=== PATIENT | male | born 1995 | race Caucasian/White ===

== ENCOUNTER 2018-01-19 19:30 | Emergency (ER) | payer BC ==
[2018-01-19 20:10] VITALS: BP 140/66
--- NOTE | 2018-01-19 21:22 | UC ---
Hand/Wrist HPI - HPI Summary HPI Summary: Patient injured his left thumb 6 days ago during football practice when it was hyperextended. He states that it was diagnosed as a sprain and wrapped. Today the thumb was accidentally bent backwards and the pain is "10 times worse than before. He states that it almost made him pass out and sick to his stomach when it occurred. He states the review trainer wrapped his thumb but told him to come here because they're concerned it may be a severe sprain or even a broken thumb. He denies any other injuries and offers no other complaints. - History Of Current Complaint Chief Complaint: UCUpperExtremity Stated Complaint: LEFT THUMB INJ Time Seen by Provider: 01/19/18 21:16 Hx Obtained From: Patient Pain Intensity: 5 Aggravating Factor(s): Movement Associated Signs And Symptoms: Positive: Swelling - Allergies/Home Medications Allergies/Adverse Reactions: Allergies Allergy/AdvReac Type Severity Reaction Status Date / Time No Known Allergies Allergy Verified 01/19/18 20:02 Home Medications: Home Medications NK [No Home Medications Reported] 01/19/18 [History Confirmed 01/19/18] PMH/Surg Hx/FS Hx/Imm Hx - Additional Past Medical History Additional PMH: Type I Chiari malformation, acl tear - Surgical History Surgical History: Yes Surgery Procedure, Year, and Place: rob cyst. LEFT ACL - Family History Known Family History: Positive: Cardiac Disease - Social History Occupation: Student Lives: Dormitory/Roommates Alcohol Use: Rare Substance Use Type: None Smoking Status (MU): Never Smoked Tobacco - Immunization History Most Recent Tetanus Shot: UTD Vaccination Up to Date: Yes Review of Systems Constitutional: Negative Skin: Negative Eyes: Negative ENT: Negative Respiratory: Negative Cardiovascular: Negative Gastrointestinal: Negative Genitourinary: Negative Motor: Negative Neurovascular: Negative Musculoskeletal: Other: - L thumb pain Neurological: Negative Psychological: Negative Is Patient Immunocompromised?: No All Other Systems Reviewed And Are Negative: Yes Physical Exam Triage Information Reviewed: Yes Appearance: Well-Appearing Vital Signs: Initial Vital Signs Temp 98.2 F 01/19/18 20:02 Pulse 80 01/19/18 20:02 Resp 16 01/19/18 20:02 BP 140/66 01/19/18 20:02 Pulse Ox 100 01/19/18 20:02 Vital Signs Reviewed: Yes Eyes: Positive: Conjunctiva Clear ENT: Positive: Normal ENT inspection Neck: Positive: Supple, Nontender, No Lymphadenopathy Respiratory: Positive: Lungs clear, Normal breath sounds Cardiovascular: Positive: RRR, No Murmur Abdomen Description: Positive: Nontender, No Organomegaly, Soft Bowel Sounds: Positive: Present Musculoskeletal: Positive: Other: - LUE: Shoulder and elbow are atraumatic. The wrist including the snuffbox are nontender. There is some mild swelling over the thenar eminence of the hand plus patient is exquisitely tender at the MCP joint. The rest of the hand is atraumatic. Range of motion at the thumb is limited due to pain the rest of the digits have full sensorivascular motor function. Neurological: Positive: Alert Psychological: Positive: Age Appropriate Behavior Skin Exam: Normal Re-Evaluation - Re-Evaluation First Eval Re-Evaluation Time: 21:47 Change: Unchanged - post xray, laxity at the mcp joint L thumb most profound on the radial side. Hand/Wrist Course/Dx - Course Course Of Treatment: no fx or dislocation but exam supports high grade sprain L thumb. will splint and refer to orthopedics. - Differential Dx/Diagnosis Provider Diagnoses: Sprain L thumb Discharge - Sign-Out/Discharge Documenting (check all that apply): Patient Departure All imaging exams completed and their final reports reviewed: No - Discharge Plan Condition: Stable Disposition: HOME Patient Education Materials: [employer] (ED) Forms: *Physical Education Release Referrals: aPige Dhillon MD [Medical Doctor] - Additional Instructions: SPLINT AT ALL TIMES UNTIL CLEARED. - Billing Disposition and Condition Condition: STABLE Disposition: Home
--- NOTE | 2018-01-20 07:50 | RAD ---
INDICATION: Left thumb pain acquired during football COMPARISON: None. TECHNIQUE: 4 views of the left hand were obtained. FINDINGS: The adequately corticated bones are in normal alignment. No significant focal osseous abnormality or fracture is seen. Joint spaces appear maintained. IMPRESSION: Normal left hand radiograph. If the patient's symptoms persist, follow-up imaging is recommended. R0
--- NOTE | 2018-01-20 14:30 | UC ---
- EKG/XRAY/CT Xray Comments: wet read correct Re-Evaluation - Re-Evaluation First Eval Re-Evaluation Time: 21:47 Change: Unchanged - post xray, laxity at the mcp joint L thumb most profound on the radial side. Discharge - Sign-Out/Discharge Documenting (check all that apply): Post-Discharge Follow Up All imaging exams completed and their final reports reviewed: Yes - Discharge Plan Condition: Stable Disposition: HOME Patient Education Materials: [employer] (ED) Forms: *Physical Education Release Referrals: Paige Dhillon MD [Medical Doctor] - Additional Instructions: SPLINT AT ALL TIMES UNTIL CLEARED. - Billing Disposition and Condition Condition: STABLE Disposition: Home
== END 2018-01-19 21:55 | disposition home or self-care (01) ==
LOC: UCCORT 19:30
DX: S63.602A Unspecified sprain of left thumb, initial encounter (principal); X50.0XXA Overexertion from strenuous movement or load, initial encounter; Y93.9 Activity, unspecified; Y92.9 Unspecified place or not applicable
CPT/HCPCS: 99202; G0463